=== PATIENT | male | born 2000 | race Caucasian/White ===

== ENCOUNTER 2020-02-10 14:57 | Emergency (ER) | payer OTHER, SELFPAY ==
[2020-02-10 15:16] VITALS: BP 120/73; PULSE 99; RESP 18; TEMP 36.8; O2SAT 98
--- NOTE | 2020-02-10 15:58 | ED.EYEPROB ---
HPI - Eye Problem General Chief complaint: Eye Problems <RUSSELL Pichardo Last Filed: 02/10/20 16:08> Stated complaint: foreign body left eye <RUSSELL Pichardo Last Filed: 02/10/20 16:08> Time Seen by Provider: 02/10/20 15:15 <RUSSELL Pichardo Last Filed: 02/10/20 16:08> Source: patient <RUSSELL Pichardo Last Filed: 02/10/20 16:08> Mode of arrival: ambulatory <RUSSELL Pichardo Last Filed: 02/10/20 16:08> Limitations: no limitations <RUSSELL Pichardo Last Filed: 02/10/20 16:08> History of Present Illness HPI Narrative: Patient is a 19-year-old male who presents to emergency department for evaluation of left eye irritation was cleaning some broken glass when someone blew causing some irritation to the left eye while in the emergency department patient believes the foreign body may came out and notes that he only has mild discomfort in the left eye at this time patient notes immunizations up-to-date resting comfortably in the room no other complaints has not taken anything for his symptoms <RUSSELL Pichardo Last Filed: 02/10/20 16:08> Related Data Allergies/adverse reactions: Allergies Allergy/AdvReac Type Severity Reaction Status Date / Time No Known Allergies Allergy Verified 11/21/19 09:39 <RUSSELL Pichardo Last Filed: 02/10/20 16:08> Review of Systems Review of Systems: All systems reviewed & are unremarkable except as noted in HPI and below <RUSSELL Pichardo Last Filed: 02/10/20 16:08> Exam Narrative: Exam Narrative: GENERAL: Well-appearing, well-nourished, and in no acute distress. HEAD: Normocephalic, atraumatic. EYES: PERRLA and EOMI. slight conjunctival injection negative foreign bodies on exam eyelids everted eye was irrigated negative fluorescein uptake ENT: Nares clear, no rhinorrhea or epistaxis. Mucous membranes moist. EXTREMITIES: Normal range of motion. No edema. SKIN: Warm, dry, no rash. NEURO: No focal deficits. Alert and oriented x3. PSYCH: Normal mood and affect. <RUSSELL Pichardo Last Filed: 02/10/20 16:08> Course Course Emergency Course: Patient in the room in no distress aware of case findings treatment plan and diagnosis agreeing to follow-up as directed or to return if symptoms worsen or concern <RUSSELL Pichardo Last Filed: 02/10/20 16:08> Vital Signs Vital signs: Vital Signs Temperature 98.3 F 02/10/20 15:16 Pulse Rate 99 02/10/20 15:16 Respiratory Rate 18 02/10/20 15:16 Blood Pressure 120/73 02/10/20 15:16 Pulse Oximetry 98 02/10/20 15:16 Temperature 97 F L 02/10/20 16:26 Pulse Rate 74 02/10/20 16:26 Respiratory Rate 18 02/10/20 16:26 Blood Pressure 117/78 02/10/20 16:26 Pulse Oximetry 98 02/10/20 16:26 <RUSSELL Pichardo Last Filed: 02/10/20 16:08> Vital Signs Temperature 98.3 F 02/10/20 15:16 Pulse Rate 99 02/10/20 15:16 Respiratory Rate 18 02/10/20 15:16 Blood Pressure 120/73 02/10/20 15:16 Pulse Oximetry 98 02/10/20 15:16 Temperature 97 F L 02/10/20 16:26 Pulse Rate 74 02/10/20 16:26 Respiratory Rate 18 02/10/20 16:26 Blood Pressure 117/78 02/10/20 16:26 Pulse Oximetry 98 02/10/20 16:26 <Gayle Alejandro MD - Last Filed: 02/10/20 17:26> MDM - Eye Problem MDM Narrative Medical decision making narrative: Patient in the room in no distress agreeing to follow-up as directed felt appropriate for outpatient reevaluation given ophthalmology referral <RUSSELL Pichardo Last Filed: 02/10/20 16:08> Discharge Plan Discharge Clinical Impression: Conjunctivitis <RUSSELL Pichardo Last Filed: 02/10/20 16:08> Patient Disposition: Home, Self-Care <RUSSELL Pichardo Last Filed: 02/10/20 16:08> Condition: Stable <Jong Velazquez PA-C - Last Filed: 02/10/20 16:08> Instructions: Antibiotic Form,
[2020-02-10 16:26] VITALS: BP 117/78; PULSE 74; RESP 18; TEMP 36.1; O2SAT 98
== END 2020-02-10 16:28 | disposition home or self-care (01) ==
PROVIDERS: Emergency Provider Emergency Medicine; PCP Internal Medicine
DX: H10.9 Unspecified conjunctivitis (principal)
CPT/HCPCS: 99283; A9270

== ENCOUNTER 2023-07-25 01:54 | Day surgery (SDC) | payer OTHER, SELFPAY ==
[2023-07-14 10:58] VITALS: BMI 33.6
--- NOTE | 2023-07-14 11:02 | PC.NURSE ---
Report to the Outpatient Waiting Room, entrance under the green pavilion located off [facility], at time 0730 on date 07/25/23. Planned Procedure Time: 0930. Time changes happen often and if your time is changed the preop area will call you the afternoon before. - You and your visitor will be asked to self-screen and do not enter if you have any COVID symptoms. - A mask is optional within the hospital at this time. Patients may have clear liquids (water, carbonated beverages, clear teas, apple juice) until 3 hours prior to surgery with a maximum of 20 ounces. - No food from midnight until time of surgery Take the following medications with a SIP of water the morning of surgery: NONE DO NOT STOP ANY OF YOUR OTHER PRESCRIPTION MEDICATIONS PRIOR TO SURGERY ?EXCEPT THE FOLLOWING Medications to discontinue per physician: N/A Date to take last dose: N/A Please no make-up, nail micronesian, hairspray, perfume, deodorant, or body powder the day of surgery. No jewelry (including any body piercings) or valuables the day of surgery, leave them at home. Please take a shower or bath the night before, or the morning of, surgery with an antibacterial soap. Wear comfortable, loose fitting clothing. - Jewelry must be removed prior to entering the operating room. Rings and piercings that are not removed may be cut off. - The hospital will not accept responsibility for valuables. - Please leave all valuables, including medications, at home the day of surgery. If you are going home after surgery, a licensed motor pool driver must drive you home. - NO public transportation without another adult if you receive anesthesia. - We recommend that an adult stay with you for 24 hours following discharge. - We also recommend that you do not drive, make important decision, drink alcoholic beverages, or take any drugs that were not prescribed by your health care provider for at least 24 hours after your discharge time. Follow any additional instructions given to you from your surgeon. If you or anyone in your household have experienced Covid symptoms in the past week, please notify your surgeon or the nurse liaison at the phone number below for possible testing. Telephone instructions given to PT - ROWAN SILVA and asked if any additional questions and then verbalized understanding. Patient advised to call surgeon office or pre surgery nurse liaison [phone] if any additional questions.
--- NOTE | 2023-07-23 15:36 | PM.IMHP ---
H&P: HPI History of Present Illness Date/Time: 07/23/23 15:36 Chief Complaint: nasal obstruction nasal congestion septal deviation turbinate hypertrophy adenoid hypertrophy Narrative: planned surgical procedure Review of Systems Review of Systems: All systems reviewed & are unremarkable except as noted in HPI and below PMFSH Family History Family History Mother Breast cancer Heart disease Cerebrovascular accident Sibling Diabetes mellitus Social History Social History Smoking status: Current some day smoker Tobacco type: e-cigarettes/vaping Additional smoking assessment comments: VERY RARE Alcohol intake: current Alcohol use details: RARE Substance use: never Substance use type: does not use Lack of Transportation: No Lack of Food: Never True Current Housing: I Have Housing Concerned About Future Housing: No Difficulty Paying Gas/Electric Bills: No Difficulty Paying for Meds: No Currently Unemployed: No Education: Trade/Vocational Certificate Difficulty w/ Childcare or Family Care: No Living arrangements: with friend(s) Additional living arrangements comments: GIRLFRIEND Spiritual care concerns: No Meds Home Medications and Allergies Home Medications Medication Instructions Recorded Confirmed Type fluticasone propionate 50 1 - 2 spray intranasal BID #16 mL 03/27/23 07/14/23 Rx mcg/actuation nasal spray,suspension (Flonase Allergy Relief) azelastine 137 mcg (0.1 %) nasal 1 spray intranasal Q12H #30 mL 05/08/23 07/14/23 Rx spray aerosol Allergies Allergy/AdvReac Type Severity Reaction Status Date / Time ELDERBERRY Allergy Anaphylaxis Uncoded 07/14/23 10:57 Exam Narrative: septal deviation turbinate hypertrophy adenoid hypertrophy Assessment and Plan Assessment and plan (1) Adenoid hypertrophy: Code(s): J35.2 - Hypertrophy of adenoids Status: Acute Assessment and Plan: OR for Endoscopic assisted septoplasty turbinate reduction with outfracture bilaterally transnasal adenoidectomy.? Risks were discussed including bleeding infection damage to surrounding structures need for further procedures CSF leak brain brain damage re hypertrophy of turbinates septal perforation stroke damage to carotid artery postoperative bleeding infection inherent risks of narcotic use damage to any structure of the clavicles by myself time off work time off school.? Damage to any structure during the induction and maintenance of anesthesia. (2) Hypertrophy of both inferior nasal turbinates: Code(s): J34.3 - Hypertrophy of nasal turbinates Status: Acute (3) Nasal septal deviation: Code(s): J34.2 - Deviated nasal septum Status: Acute (4) Nasal obstruction: Code(s): J34.89 - Other specified disorders of nose and nasal sinuses Status: Acute
--- NOTE | 2023-07-24 14:34 | WPDANESEPPF ---
Anes - Initial Pre Proc Eval Procedure: Operation Date: 07/25/23 09:30 Proposed Procedures p Septoplasty, - Segundo Jerez MD s Bilateral Inferior Turbinate Reduction with Outfracture, - Segundo Jerez MD s Adenoidectomy - Segundo Jerez MD Date/Time: 07/24/23 14:34 Surgeon: Segundo Jerez MD Pre Op Diagnosis: adenoid hypertrophy,nasal obst & congestion, Patient Data Age: 23 Gender: M Height: 1.83 m Weight: 112.5 kg Allergies Allergy/AdvReac Type Severity Reaction Status Date / Time ELDERBERRY Allergy Anaphylaxis Uncoded 07/25/23 07:16 Home Medications Medication Instructions Recorded Confirmed Type fluticasone propionate 50 1 - 2 spray intranasal BID #16 mL 03/27/23 07/14/23 Rx mcg/actuation nasal spray,suspension (Flonase Allergy Relief) azelastine 137 mcg (0.1 %) nasal 1 spray intranasal Q12H #30 mL 05/08/23 07/14/23 Rx spray aerosol Patient hx anesthesia problems: none Family hx anesthesia problems: none Results Review: All pre-operative results and documents have been reviewed as part of the pre-operative evaluation. [facility] Family History Family History Mother Breast cancer Heart disease Cerebrovascular accident Sibling Diabetes mellitus Social History Social History Smoking status: Current some day smoker Tobacco type: e-cigarettes/vaping Additional smoking assessment comments: VERY RARE Alcohol intake: current Alcohol use details: RARE Substance use: never Substance use type: does not use Lack of Transportation: No Lack of Food: Never True Current Housing: I Have Housing Concerned About Future Housing: No Difficulty Paying Gas/Electric Bills: No Difficulty Paying for Meds: No Currently Unemployed: No Education: Trade/Vocational Certificate Difficulty w/ Childcare or Family Care: No Living arrangements: with friend(s) Additional living arrangements comments: GIRLFRIEND Spiritual care concerns: No Anes - Eval Final PreProcedure Day of Procedure 07/24/23 14:34 Patient weight: obese Heart: regular rate and rhythm Lungs: clear to auscultation Airway: Mallampati scale class II Neurological: alert and oriented Last oral intake: >/= 8 hours ASA classification: II Emergent: no Anesthetic plan: proceed Anesthesia type and monitoring: general ETT and standard monitoring Results Review: All pre-operative results and documents have been reviewed as part of the pre-operative evaluation. Informed Consent: The patient's anesthetic plan and its attendant risks and benefits were discussed with the patient/family/POA. Questions were solicited and answers provided to the satisfaction of the patient/family/POA.
[2023-07-25] VITALS (9 sets, daily range): BP systolic 113–149; BP diastolic 68–96; PULSE 64–94; RESP 12–20; TEMP 36.2–36.7; O2SAT 97–100
--- NOTE | 2023-07-25 07:18 | WPDHPUPDATE1 ---
History and Physical Update Update Date/Time: 07/25/23 07:18 History and Physical has been reviewed, including an updated exam of the patient. There are NO changes in the patient's condition. Risks, benefits, and alternatives have been discussed and questions answered. Patient agrees to proceed with procedure.
[2023-07-25] MEDS: ACETAMINOPHEN 500 MG TABLET 1000 MG PO (07:43)
[2023-07-25] MEDS: LACTATED RINGERS 1,000 ML 30 ML IV CONT (07:59)
[2023-07-25] MEDS: ceFAZolin 2 GM/D5W 50 ML 2 GM/50 ML BAG IVPB (09:35)
[2023-07-25] MEDS: OXYMETAZOLINE HCL 0.05% NAS 15 ML BTL (*BKC) 1 SPRAY NASAL (09:53)
[2023-07-25] MEDS: LIDO 1%/EPINEPHRINE 1:100,000 50 ML VIAL INFILTRATE (09:54)
[2023-07-25] MEDS: MUPIROCIN 2% OINT 22 GM TUBE 1 APPLIC EACH NARE (11:10)
[2023-07-25] MEDS: HEMOSTATIC MATRIX (SURGIFLO with THROMBIN) KIT 1 KIT XX (11:38)
--- NOTE | 2023-07-25 12:24 | P.OP_ITS ---
Procedure Note - Detailed Date of Procedure 07/25/23 Pre-op Diagnosis adenoid hypertrophy,nasal obst & congestion, Post-op Diagnosis Same Procedure Performed Transnasal adenoidectomy, endoscopic assisted septoplasty, bilateral inferior t urbinate reduction with outfracture Surgeon Segundo Jerez MD Anesthesia General Indications see above Findings severely deviated septum severely hypertrophied adenoids severely hypertrophied inferior turbinates especially the right. Description of Procedure patient identified consent verified preoperative paperwork to the operating room. Time-out performed. General anesthesia induced endotracheal tube secured. Patient prepped draped positioned 2nd time-out performed. Totally 10 cc 1% lidocaine 1 100 large then reacted epinephrine injected bilateral inferior turbinates nasal septum. [place] incision made left side left nasal septal flap elevated osteotome utilized to cross over right nasal septal flap elevated perforation right posterior large spur no perforation on the left deviated septum removed [place] forceps Luis Atkins forceps. Jude incision closed interrupted 5 0 fast gut sutures. Turbinates reduced submucosal plane using [place] 2.5 mm blade then outfractured right had some tears and right was severely hypertrophied really good reduction. Adenoids and removed combination Bovie suction electrocautery as well as microdebrider. Greatly reduced the patient's airway was vastly improved. Total blood loss 25 cc. FloSeal placed Bass splints placed sutured anteriorly using a 3-0 mattress nylon suture. Of importance I accidentally cut the patient's left nasal sidewall removing the 15 blade. This was closed with interrupted 5 0 fast gut suture. Approximated perfectly and there was no bleeding. Ointment was placed over this as well. Care the patient given back to Anesthesiology. I performed all dictated portions procedure. No complications other than the left nasal cut. Patient tolerated the procedure well. Patient taken to PACU. Estimated Blood Loss 25 Drains No Packing No Pathology None sent Complications No immediate complications Condition Stable Disposition PACU [facility] Billing Surgery - Charge Forward: Surgery Billing
== END 2023-07-25 13:50 | disposition home or self-care (01) ==
PROVIDERS: PCP Internal Medicine; Visit Provider Otolaryngology
PROC: (CPT 30520; principal; 2023-07-25 09:30)
PROC: (CPT 30520; 2023-07-25 09:30)
PROC: (CPT 30520; 2023-07-25 09:30)
DX: J34.2 Deviated nasal septum (principal); J34.3 Hypertrophy of nasal turbinates; J35.2 Hypertrophy of adenoids; J34.89 Other specified disorders of nose and nasal sinuses; E66.9 Obesity, unspecified; Z68.34 Body mass index [BMI] 34.0-34.9, adult; F17.290 Nicotine dependence, other tobacco product, uncomplicated; Z79.51 Long term (current) use of inhaled steroids; Z82.49 Family history of ischemic heart disease and other diseases of the circulatory system; Z80.3 Family history of malignant neoplasm of breast
CPT/HCPCS: 30520; 30140; 42831; A9270; J0330; J0690; J1100; J2250; J2405; J2704; J3010; J7040; J7120